=== PATIENT | male | born 1970 ===

== ENCOUNTER 2020-01-25 06:55 | Day surgery (SDC) | payer OTHER | END 2020-01-25 15:25 | disposition home or self-care (01) | LOC: AMB-ENDOS 06:55 → ADM 12:30 → AMB-ENDOS 14:15 | PROVIDERS: ATTEND Colon & Rectal Surgery | DX: K62.89 Other specified diseases of anus and rectum (principal); K64.0 First degree hemorrhoids; Z20.828 Contact with and (suspected) exposure to other viral communicable diseases ==